=== PATIENT | female | born 1960 | race Caucasian/White ===

== ENCOUNTER 2024-12-19 15:27 | Emergency (ER) | payer MEDICAID, SELFPAY ==
[2024-12-19 15:28] VITALS: BP 106/54
[2024-12-19 15:29] VITALS: BMI 33.9
[2024-12-19 15:38] VITALS: BP 106/54
[2024-12-19 16:00] VITALS: BP 104/39
[2024-12-19 16:58] LABS: % Basophils 0.5 % (0-2); % Eosinophils 1.1 % (0-6); % Immature Granulocytes 0.2 % (0-0.5); % Lymphocytes 22.5 % (20.5-51.1); % Monocytes 10.2 % (1.7-9.3); % Neutrophils 65.5 % (42.2-75.2); Absolute Eosinophils 0.1 10^3/uL (0-0.7); Absolute Lymphocytes 1.3 10^3/uL (1.2-3.4); Absolute Monocytes 0.6 10^3/uL (0.1-0.6); Absolute Neutrophils 3.7 10^3/uL (1.4-6.5); Hemoglobin 14.4 g/dL (12.0-16.0); Mean Corp Hgb Conc. 33.5 g/dL (33.0-37.0); Mean Corpuscular Hgb 32.7 pg (27.0-31.0); Mean Corpuscular Volume 97.7 fL (81.0-99.0); Mean Platelet Volume 9.2 fL (7.4-10.4); Nucleated Red Blood Cells % 0 %; Platelet Count 202 10^3/uL (130-400); Red Cell Dist. Width 12.7 % (11.5-14.5); White Blood Cell Count 5.6 10^3/uL (4.8-10.8)
[2024-12-19 17:25] LABS: ALT (SGPT) 33 U/L (0-35); AST (SGOT) 60 U/L (14-36); Albumin 4.3 g/dl (3.5-5.0); Alkaline Phosphatase 138 U/L (38-126); Blood Urea Nitrogen 21 mg/dl (7-17); Calcium 8.9 mg/dl (8.4-10.2); Carbon Dioxide 25 mmol/L (22-30); Chloride 112 mmol/L (98-107); Estimated Creatinine Clearance 83 ml/min; Glucose 101 mg/dl (70-99); Potassium 3.7 mmol/L (3.5-5.1); Sodium 145 mmol/L (135-145); Total Bilirubin 0.4 mg/dl (0.2-1.3); Total Protein 7.1 g/dl (6.3-8.2); eGFR > 60.00
--- NOTE | 2024-12-19 18:18 | ED.GENMED ---
History of Present Illness
General
Chief Complaint: Change in Mental Status
Time Seen by Provider: 12/19/24 15:50
History of Present Illness
History of Present Illness:
Note:
CHIEF COMPLAINT(S)
Mental status change
HISTORY OF PRESENT ILLNESS
The patient is a 64-year-old female presenting with concerns of a urinary tract infection that is not resolving. Approximately three days ago, the patient was diagnosed with a urinary tract infection via a urine test and was started on antibiotics.
However, there has been no improvement in her symptoms. The patient denies experiencing any pain currently. She also mentions difficulty with movement on her left side, which she attributes to childhood meningitis. The patient is oriented but
initially shows some reluctance to cooperate fully with the medical evaluation.
PHYSICAL EXAM
GEN: Well appearing, NAD, WDWN
HEENT: Oral mucosa moist, no scleral icterus
Cardiac: Regular rate
Lung: No respiratory distress, no tachypnea
MSK: No gross deformity or injuries
Skin: Good color, no pallor or jaundice, no rashes
Neuro: AO x3, baseline left hemiparesis
Psych: Calm, cooperative
PLAN
- Conduct blood tests, including checking the patients keppra level, to further evaluate the underlying causes of the unresolved urinary tract infection.
DIFFERENTIAL DIAGNOSIS
The Differential Diagnosis includes, in no particular order and is not limited to:
1. Persistent urinary tract infection
2. Pyelonephritis
3. Antibiotic-resistant bacteria
4. Neurological issues related to past meningitis
5. Circulatory disorders affecting healing
6. Medication non-compliance
7. Physical obstruction in urinary tract
8. Bladder infection
9. Incomplete bladder emptying
10. Underlying metabolic disorder
Disposition:
DIAGNOSIS
- Inappropriately treated Urinary Tract Infection (UTI) due to E. coli (ICD-10: N39.0)
SUMMARY OF ENCOUNTER
A 64-year-old female was brought in from a nursing facility with suspected acute encephalopathy characterized by abnormal behavior and agitation. On evaluation, the patient was alert and fully oriented but demonstrated some reluctance to cooperate
during the exam. Her labs were unremarkable. Urine analysis and culture results from three days prior indicated E. coli infection susceptible to nitrofurantoin. However, due to unchanged or worsening mental status suggesting ineffective treatment,
it was determined that the UTI was inappropriately managed.
DISPOSITION
The patient was discharged to her nursing facility.
ASSESSMENT
The patients cognitive changes are likely due to an ineffectively treated UTI secondary to E. coli. Despite treatment with nitrofurantoin initially, a switch in antibiotic regimen was warranted due to lack of improvement in symptoms.
EMERGENCY TREATMENTS ADMINISTERED
The patient received IV ceftriaxone in the emergency department.
PLAN
The patient is to be switched from nitrofurantoin to a cephalosporin antibiotic regimen upon discharge, with specific instructions to continue treatment with cephalexin (Keflex).
INDEPENDENT INTERPRETATION OF TESTS
- My independent interpretation of the urine culture is that E. coli was present, with sensitivity to nitrofurantoin.
- My independent interpretation of the CT scan of the head is that it was unremarkable.
MEDICATION RECONCILIATION
- IV ceftriaxone administered in the emergency department.
- Prescription for cephalexin provided upon discharge.
MEDICAL DECISION MAKING
Number and Complexity of Problems Addressed: The unresolved UTI with neurological implications required reassessment and alteration of antibiotic therapy.
Data: Lab results, including a urine analysis and culture, were reviewed, confirming E. coli infection. Treatment was adjusted based on these findings.
Risk: The decision to discharge was influenced by coordinated management with the nursing facility, considering the patients current medical status and lack of admission indication.
Phy Exam
Physical Exam
Physical Exam:
.
Course
Orders/Labs/Results
Orders:
Orders
12/19/24 16:22
Complete Blood Count/With Diff Urgent
Comprehensive Metabolic Panel Urgent
Keppra (Levetiracetam) [S] Urgent
12/19/24 17:37
CT Head W/o Iv Contrast Urgent
Comment:
Reason For Exam: AMS
12/19/24 20:43
CefTRIAXone [Rocephin] 1,000 mg IV NOW STA
12/19/24 21:04
Sterile Water [Sterile Water For Injection] 10 ml IV NOW STA
Abnormal Lab Results
12/19/24
16:22
MCH 32.7 H pg
(27.0-31.0)
Monocytes % 10.2 H %
(1.7-9.3)
Chloride 112 H mmol/L
(98-107)
BUN 21 H mg/dl
(7-17)
Glucose 101 H mg/dl
(70-99)
AST 60 H U/L
(14-36)
Alkaline Phosphatase 138 H U/L
(38-126)
12/19/24 16:22
12/19/24 16:22
Vital Signs
Initial and Last Documented VS:
Initial Vital Signs
BP
106/54
12/19/24 15:28
Last Documented Vital Signs
Temp Pulse Resp BP Pulse Ox
98.2 F 88 20 104/39 95
12/19/24 15:38 12/19/24 15:38 12/19/24 15:38 12/19/24 16:00 12/19/24 21:30
*Critical Care Note
Total Time (30-74mins, 75-104mins- exclusive of procedures): Not Applicable
ED Attending Note
-
Portions of this chart may have been created with voice recognition software.� Occasional wrong word or��sound alike� substitutions may have occurred due to the inherent limitations of voice recognition software.
Discharge Plan
Departure
Patient Disposition: Home (Routine Discharge)
Date of Disposition: 12/19/24
Time of Disposition: 20:43
Patient with high blood pressure during this ER visit?: No
Discharge Problem:
Urinary tract infection
Instructions: Altered Mental Status (DC)
Prescriptions:
New
cefdinir 300 mg capsule
300 mg PO Q12H Qty: 14 0RF
Referrals:
Crow Trevino I., DO [Family Provider, Internal Medicine]
Interventions
Interventions:
*Risk Screen - Suicide Last Done: 12/19/24 15:38
*General Assessment Last Done: 12/19/24 15:38
*Neglect/Abuse Screening Last Done: 12/19/24 15:38
*ED- Fall Risk Assessment Last Done: 12/19/24 15:38
*ED COVID-19 Vaccine History Last Done: 12/19/24 15:38
*Nursing Disposition Last Done: 12/19/24 21:45
ED-Psychological Assessment Last Done: 12/19/24 15:46
ED- Neurological Assessment Last Done: 12/19/24 15:38
ED Swallowing Screen Last Done: 12/19/24 17:05
Discharge Date and Time
Print Language: PALESTINIAN
[2024-12-19] MEDS: STERILE WATER FOR INJECTION 10 ML IV (21:07)
[2024-12-19] MEDS: ROCEPHIN 1000 MG IV (21:07)
== END 2024-12-19 21:45 | disposition home or self-care (01) ==
LOC: EMR 15:27
PROVIDERS: Physician Assistant; EMERGENCY PHYSICIAN Student in an Organized Health Care Education/Training Program; FAMILY PHYSICIAN Internal Medicine
DX: N39.0 Urinary tract infection, site not specified (principal)
CPT/HCPCS: 99285; 96374; 70450; 80053; 80177; 85025